=== PATIENT | male | born 1980 | race Caucasian/White ===

== ENCOUNTER 2017-03-25 10:28 | Emergency (ER) | payer SELFPAY ==
[~2017-03-25] VITALS: Ht 185.4 cm; Wt 66.5 kg
[2017-03-25 10:31] VITALS: BP 120/74
[2017-03-25] MEDS ORDERED: BENZOCAINE 20% SPRAY 0.5ML TP ONE (11:00)
[2017-03-25] MEDS ORDERED: LIDOCAINE 1%, 20ML SQ ONE (11:00)
[2017-03-25] MEDS ORDERED: HYDROcodone/APAP 5/325 TABLET PO ONE (11:00)
[2017-03-25] MEDS ORDERED: BENZOCAINE 20% SPRAY 0.5ML ONE (11:23)
[2017-03-25] MEDS ORDERED: LIDOCAINE 1%, 20ML ONE (11:23)
[2017-03-25] MEDS ORDERED: HYDROcodone/APAP 5/325 TABLET ONE (11:32)
== END 2017-03-25 11:59 | disposition home or self-care (01) ==
LOC: ED 11:30
DX: K04.6 Periapical abscess with sinus (principal)
CPT/HCPCS: 64400; 99284; J3490